=== PATIENT | female | born 1975 | race Caucasian/White ===

== ENCOUNTER 2020-06-05 17:02 | Inpatient (IN) | payer MEDICAID ==
[~2020-06-05] VITALS: Ht 167.6 cm; Wt 90.8 kg
[2020-06-05 19:28] LABS: BASOPHILS % (AUTO) 1.7 % (0.0-2.0); EOSINOPHILS % (AUTO) 2.8 % (1.0-6.0); HEMATOCRIT 41.4 % (36-46); HEMOGLOBIN 14.1 g/dL (12.0-16.0); LYMPHOCYTES # (AUTO) 3.5 K/uL (1.0-4.8); LYMPHOCYTES % (AUTO) 41.8 % (22.0-44.0); MEAN CORPUSCULAR HEMOGLOBIN 30.4 pg (26.0-34.0); MEAN CORPUSCULAR VOLUME 89 fL (80-100); MONOCYTES # (AUTO) 0.4 K/uL (0.1-1.0); MONOCYTES % (AUTO) 5.1 % (2.0-9.0); NEUTROPHILS # (AUTO) 4.1 K/uL (1.8-7.7); NEUTROPHILS % (AUTO) 48.6 % (40.0-70.0); PLATELET COUNT (AUTO) 316 K/uL (150-450); RED BLOOD CELL COUNT(AUTO) 4.63 MIL/uL (4.00-5.20); RED CELL DISTRIBUTION WIDTH 13.4 % (11.5-14.5)
[2020-06-05 19:36] LABS: AMPHET/METH SCREEN,URINE NEGATIVE (NEGATIVE); BARBITURATE SCREEN, URINE NEGATIVE (NEGATIVE); BENZODIAZEPINES SCREEN,URINE NEGATIVE (NEGATIVE); CANNABINOID SCREEN,URINE NEGATIVE (NEGATIVE); COCAINE SCREEN,URINE NEGATIVE (NEGATIVE); METHADONE SCREEN, URINE NEGATIVE (NEGATIVE); OPIATE SCREEN,URINE NEGATIVE (NEGATIVE); PHENCYCLIDINE SCREEN,URINE NEGATIVE (NEGATIVE)
[2020-06-05 19:39] LABS: ANION GAP 13 mmol/L (8-16); CARBON DIOXIDE 23 mmol/L (22-29); CHLORIDE 105 mmol/L (98-107); CREATININE 0.72 mg/dL (0.60-1.30); GLOMERULAR FILTR. RATE CALC > 60 mL/min (>60); GLUCOSE,RANDOM 102 mg/dL (70-110); POTASSIUM 3.7 mmol/L (3.5-5.1); SODIUM SERUM 141 mmol/L (136-145); UREA NITROGEN, BLOOD 7 mg/dL (7-18)
[2020-06-05 19:51] LABS: ALANINE AMINOTRANSFERASE 58 U/L (12-78); ALBUMIN 3.8 g/dL (3.4-5.0); ALKALINE PHOSPHATASE 83 U/L (46-116); BILIRUBIN,TOTAL 0.2 mg/dL (0.1-1.0); HCG,QUANTITATIVE < 1 mIU/mL (0-6); TOTAL PROTEIN, SERUM 7.2 g/dL (6.4-8.2)
[2020-06-05 20:37] LABS: ASPARTATE AMINOTRANSFERASE 39 U/L (15-37)
[2020-06-05 20:46] LABS: COVID AG,FIA SOURCE NASOPHARYNGEAL
[2020-06-05] MEDS ORDERED: LORazepam 2 MG TABLET PO PRN (21:15)
[2020-06-05] MEDS ORDERED: ACETAMINOPHEN 325 MG TABLET PO PRN ×2 (21:15)
[2020-06-05] MEDS ORDERED: ZOLPIDEM TARTRATE 10 MG TABLET PO PRN (21:15)
[2020-06-05] MEDS ORDERED: LOPERAMIDE HCL 2 MG CAPSULE PO PRN ×2 (21:15)
[2020-06-05] MEDS ORDERED: GuaiFENesin/D-METHORPHAN [SUGAR-FREE] 200-20MG/10 ML SYRUP UDCUP PO PRN (21:15)
[2020-06-05] MEDS ORDERED: PROMETHAZINE HCL 25 MG TABLET PO PRN (21:15)
[2020-06-05] MEDS ORDERED: TUBERCULIN, PURIFIED PROTEIN DERIVATIVE 5 TU/0.1 ML SYRINGE ID ONE (21:15)
[2020-06-05] MEDS ORDERED: OLANZapine 5 MG RAPDIS TABLET PO PRN (21:15)
[2020-06-05] MEDS ORDERED: MAGNESIUM HYDROXIDE SUSPENSION 30 ML UDCUP PO PRN ×2 (21:15)
[2020-06-05] MEDS ORDERED: MAG HYDROX/AL HYDROX/SIMETH ES 30 ML SUSPENSION UDCUP PO PRN ×2 (21:15)
[2020-06-05] MEDS ORDERED: HydrOXYzine PAMOATE 50 MG CAPSULE PO PRN (21:15)
[2020-06-05 22:31] LABS: SALICYLATE 1.3 mg/dL (2.8-20.0)
[2020-06-05 22:36] LABS: ACETAMINOPHEN < 2 mcg/mL (10-30)
[2020-06-06 00:50] VITALS: BP 134/78
[2020-06-06] MEDS ORDERED: INFLUENZA VIRUS VACCINE QVS 2020-21 (6MO+)/PF 60 MCG/0.5 ML SYRINGE IM ONE (02:45)
[2020-06-06 06:48] LABS: HEMOGLOBIN A1C 6.1 % (3.8-5.6)
[2020-06-06 07:15] LABS: CHOL/HDL RATIO 6.2 (3.9-5.7); CHOLESTEROL 205 mg/dL (131-200); FREE T4 (FREE THYROXINE) 1.04 ng/dL (0.76-1.46); HDL CHOLESTEROL 33 mg/dL (40-60); THYROID STIMULATING HORMONE 3.27 uIU/mL (0.36-3.74); TRIGLYCERIDES 669 mg/dL (15-150)
[2020-06-06] MEDS ORDERED: FLUoxetine HCL 20 MG CAPSULE PO SCH (09:00)
[2020-06-06 09:02] VITALS: BP 126/66
[2020-06-06] MEDS: OMEGA-3/DHA/EPA/FISH OIL 1,000 MG CAPSULE PO SCH (10:07)
[2020-06-06] MEDS: MULTIVITAMINS WITH MINERALS, THERAPEUTIC TABLET PO SCH (10:08)
[2020-06-06] MEDS: NALTREXONE HCL 50 MG TABLET PO SCH (10:08)
[2020-06-06] MEDS: THIAMINE 100 MG TABLET PO SCH ×2 (10:08→16:24)
[2020-06-06] MEDS: FOLIC ACID 1 MG TABLET PO SCH (10:08)
[2020-06-06 16:00] VITALS: BP 142/83
[2020-06-06] MEDS: GEMFIBROZIL 600 MG TABLET PO SCH (16:24)
[2020-06-06] MEDS ORDERED: MIRTAZAPINE 15 MG TABLET PO SCH (21:00)
[2020-06-06] MEDS ORDERED: OLANZapine 5 MG RAPDIS TABLET PO SCH (21:00)
[2020-06-07] MEDS: GEMFIBROZIL 600 MG TABLET PO SCH ×2 (06:53→16:45)
[2020-06-07] MEDS ORDERED: DULoxetine HCL 20 MG CAPSULE PO SCH (09:00)
[2020-06-07] MEDS: THIAMINE 100 MG TABLET PO SCH ×2 (09:07→16:45)
[2020-06-07] MEDS: NALTREXONE HCL 50 MG TABLET PO SCH (09:07)
[2020-06-07] MEDS: FOLIC ACID 1 MG TABLET PO SCH (09:07)
[2020-06-07] MEDS: MULTIVITAMINS WITH MINERALS, THERAPEUTIC TABLET PO SCH (09:07)
[2020-06-07] MEDS: OMEGA-3/DHA/EPA/FISH OIL 1,000 MG CAPSULE PO SCH (09:08)
[2020-06-07 09:44] VITALS: BP 118/79
[2020-06-07 16:00] VITALS: BP 110/78
[2020-06-07] MEDS: OLANZapine 10 MG RAPDIS TABLET PO SCH (20:31)
[2020-06-07] MEDS: MIRTAZAPINE 15 MG TABLET PO SCH (20:31)
[2020-06-08] MEDS: GEMFIBROZIL 600 MG TABLET PO SCH ×2 (06:09→16:51)
[2020-06-08 08:00] VITALS: BP 113/56
[2020-06-08] MEDS: MULTIVITAMINS WITH MINERALS, THERAPEUTIC TABLET PO SCH (08:31)
[2020-06-08] MEDS: THIAMINE 100 MG TABLET PO SCH ×2 (08:31→16:51)
[2020-06-08] MEDS: OMEGA-3/DHA/EPA/FISH OIL 1,000 MG CAPSULE PO SCH (08:32)
[2020-06-08] MEDS: DULoxetine HCL 20 MG CAPSULE PO SCH (08:32)
[2020-06-08] MEDS: FOLIC ACID 1 MG TABLET PO SCH (08:32)
[2020-06-08] MEDS: NALTREXONE HCL 50 MG TABLET PO SCH (08:32)
[2020-06-08] MEDS ORDERED: DULoxetine HCL 30 MG CAPSULE PO SCH (09:00)
[2020-06-08 16:38] VITALS: BP 128/76
[2020-06-08] MEDS ORDERED: MIRT-89 PO (20:16)
[2020-06-08] MEDS ORDERED: DULO20CA27 PO (20:16)
[2020-06-08] MEDS ORDERED: OLAN10TA22 PO (20:16)
[2020-06-08] MEDS ORDERED: NALT50TA PO (20:16)
[2020-06-08] MEDS ORDERED: OMEG-135 PO (20:16)
[2020-06-08] MEDS: OLANZapine 10 MG RAPDIS TABLET PO SCH (20:29)
[2020-06-08] MEDS: MIRTAZAPINE 15 MG TABLET PO SCH (20:29)
[2020-06-09] MEDS: GEMFIBROZIL 600 MG TABLET PO SCH (06:51)
[2020-06-09 09:00] VITALS: BP 120/79
[2020-06-09] MEDS: MULTIVITAMINS WITH MINERALS, THERAPEUTIC TABLET PO SCH (09:36)
[2020-06-09] MEDS: THIAMINE 100 MG TABLET PO SCH (09:36)
[2020-06-09] MEDS: OMEGA-3/DHA/EPA/FISH OIL 1,000 MG CAPSULE PO SCH (09:36)
[2020-06-09] MEDS: FOLIC ACID 1 MG TABLET PO SCH (09:36)
[2020-06-09] MEDS: NALTREXONE HCL 50 MG TABLET PO SCH (09:36)
[2020-06-09] MEDS: DULoxetine HCL 20 MG CAPSULE PO SCH (09:36)
[2020-06-09] MEDS ORDERED: GEMF600T5 PO (11:57)
== END 2020-06-09 12:35 | disposition home or self-care (01) | DRG 750 ==
LOC: EMS 17:02 → 3EI 23:34
PROVIDERS: ADMIT Psychiatry & Neurology Psychiatry; ATTEND Psychiatry & Neurology Psychiatry
DX: F25.9 Schizoaffective disorder, unspecified (principal); E78.1 Pure hyperglyceridemia; Z55.9 Problems related to education and literacy, unspecified; Z59.9 Problem related to housing and economic circumstances, unspecified; Z65.3 Problems related to other legal circumstances; Z03.818 Encounter for observation for suspected exposure to other biological agents ruled out
CPT/HCPCS: 83036; 84439; 84443; 86592; 87426; G0480; G0481